=== PATIENT | male | born 1980 | race Caucasian/White ===

== ENCOUNTER 2019-01-29 09:43 | Emergency (ER) | payer BC ==
[~2019-01-29] VITALS: Ht 180.3 cm; Wt 86.2 kg
[2019-01-29] MEDS ORDERED: LEXAPRO 10 MG T10 M2 PO (09:53)
[2019-01-29 10:17] VITALS: BP 144/76
== END 2019-01-29 10:18 | disposition home or self-care (01) ==
LOC: M.ERS 09:43
DX: S61.211A Laceration without foreign body of left index finger without damage to nail, initial encounter (principal); L40.9 Psoriasis, unspecified; W26.0XXA Contact with knife, initial encounter; Y93.89 Activity, other specified; Y92.89 Other specified places as the place of occurrence of the external cause; Y99.8 Other external cause status

== ENCOUNTER 2019-02-04 16:40 | Emergency (ER) | payer BC ==
[~2019-02-04] VITALS: Ht 180.3 cm; Wt 86.2 kg
[~2019-02-04 16:40] MED LIST: LEXAPRO 10 MG T10 M2 PO
[2019-02-04 17:46] VITALS: BP 140/80
== END 2019-02-04 17:47 | disposition home or self-care (01) ==
LOC: M.ERS 16:40
DX: S61.211D Laceration without foreign body of left index finger without damage to nail, subsequent encounter (principal); X58.XXXD Exposure to other specified factors, subsequent encounter